=== PATIENT | female | born 1980 | race Hispanic/Latino ===

== ENCOUNTER 2025-06-29 21:01 | Emergency (ER) | payer OTHER, SELFPAY ==
[2025-06-29 21:03] VITALS: BP 130/75
--- NOTE | 2025-06-29 22:32 | ED.MUSCINJ ---
HPI-Injury
<Meg Gerard, SENIOR ACCOUNT DIRECTOR - Last Filed: 06/29/25 22:50>
General
Chief Complaint: Musculo-Skeletal Complaint
Source: patient
Exam Limitations: none
Time Seen by Provider: 06/29/25 22:32
Nursing documentation reviewed up to this point in time: agreed with
History of Present Illness-Injury
Initial Injury comments:
45-year-old female with no significant past medical history presents for right low back pain radiating down her butt and down the back of her thigh for the past 3 weeks, she has taken Ibuprofen with little relief. Denies weakness in her legs,
denies saddle anesthesia, denies loss of bowel or bladder control. She does state that 'it arguello when I pee.'
Denies fever or chills. Denies abdominal pain. Denies vaginal discharge.
She states her last period was 8 months ago. She states her mother went through early menopause
Past History
<Meg Gerard, SENIOR ACCOUNT DIRECTOR - Last Filed: 06/29/25 22:50>
Past History
ED Past Medical History: Other (Migraines)
ED Past Surgical History: Gynecological (Ovarian cyst, tubal)
Social History
Tobacco: Non-smoker
Alcohol: None
Personal:
Living: with family
Employment: Not employed
Review of Systems
<Meg Gerard, SENIOR ACCOUNT DIRECTOR - Last Filed: 06/29/25 22:50>
Review of Systems
Allergies reviewed?: Yes
All Other Systems: ROS reviewed and negative except as documented in HPI and ROS
Phy Exam
<Meg Gerard, SENIOR ACCOUNT DIRECTOR - Last Filed: 06/29/25 22:50>
Physical Exam
Physical Exam:
GENERAL: No acute distress. A&Ox3.
CONSTITUTIONAL: Afebrile.
EYES: clear, conjunctivae normal
ENMT: moist mucus membranes
RESPIRATORY: Regular respirations, nonlabored, lungs clear.
CARDIOVASCULAR: Regular rate and rhythm, no murmurs, no rubs.
GI: Soft, nontender, normal BS
MUSCULOSKELETAL: Positive bilateral straight leg raise. No back tenderness to palpation. Patient sat up on edge of stretcher, got off the stretcher and ambulated to the bathroom albeit slowly. She points to the back of her right thigh to indicate
pain. Calf is nontender. No notable swelling, no redness or warmth. Moves with ease. Well perfused.
SKIN: Warm, dry, normal
PSYCH: Normal mood and affect. Well kept, interactive and appropriate
NEUROLOGIC: Awake, alert and oriented. No focal neurological deficits strength 5/5 bilaterally. Patellar reflexes 2/4 bilaterally. Ambulates well.
Injury Course
<Meg Gerard, SENIOR ACCOUNT DIRECTOR - Last Filed: 06/29/25 22:50>
Orders/Labs/Results
Orders:
Orders
06/29/25 22:30
Dexamethasone [Decadron] 10 mg PO NOW STA
Ketorolac [Toradol] 30 mg IM NOW STA
06/29/25 22:31
Diazepam [Valium] 2 mg PO NOW STA
06/29/25 22:34
Test Result ONCE
06/29/25 22:42
Urinalysis Reflex To Culture Urgent
Date Specimen was Collected: 06/29/25
Time Specimen was Collected: 22:37
Urine Microscopic Reflex Cult Urgent
Urine,Hcg qualitative screen [HCG, Urine Qualitative Screen] Urgent
Date Specimen was Collected: 06/29/25
Time Specimen was Collected: 22:38
Urine Culture Urgent
ISSA Source: U
Specimen Description:
Date Specimen was Collected: 06/29/25
Time Specimen was Collected: 22:37
06/29/25 22:44
US Periph Venous LOWER Ext RT Urgent
Comment:
Reason For Exam: Pain right posterior thigh, popliteal area and sharif
Abnormal Lab Results
06/29/25
22:42
Leukocyte Esterase Rfl 1+ A
(Negative)
Urine Bacteria (Reflex) Few A
(Negative)
<Rosa Walton PA-C - Last Filed: 06/30/25 01:25>
Orders/Labs/Results
Orders:
Orders
06/29/25 22:30
Dexamethasone [Decadron] 10 mg PO NOW STA
Ketorolac [Toradol] 30 mg IM NOW STA
06/29/25 22:31
Diazepam [Valium] 2 mg PO NOW STA
06/29/25 22:34
Test Result ONCE
06/29/25 22:42
Urinalysis Reflex To Culture Urgent
Date Specimen was Collected: 06/29/25
Time Specimen was Collected: 22:37
Urine Microscopic Reflex Cult Urgent
Urine,Hcg qualitative screen [HCG, Urine Qualitative Screen] Urgent
Date Specimen was Collected: 06/29/25
Time Specimen was Collected: 22:38
Urine Culture Urgent
ISSA Source: U
Specimen Description:
Date Specimen was Collected: 06/29/25
Time Specimen was Collected: 22:37
06/29/25 22:44
US Periph Venous LOWER Ext RT Urgent
Comment:
Reason For Exam: Pain right posterior thigh, popliteal area and sharif
Abnormal Lab Results
06/29/25
22:42
Leukocyte Esterase Rfl 1+ A
(Negative)
Urine Bacteria (Reflex) Few A
(Negative)
<Meg Gerard NP - Last Filed: 06/29/25 22:50>
MDM/Problems Addressed
Differential Diagnosis Includes:
Urinary tract infection
Musculoskeletal low back pain, sciatica, DVT
MDM/Problems Addressed:
45-year-old female with no significant past medical history presents for right low back pain radiating down her butt and down the back of her thigh for the past 3 weeks, she has taken Ibuprofen with little relief. Denies weakness in her legs,
denies saddle anesthesia, denies loss of bowel or bladder control. She does state that 'it arguello when I pee.'
Denies fever or chills. Denies abdominal pain. Denies vaginal discharge.
She states her last period was 8 months ago. She states her mother went through early menopause
Explained to patient and about sciatica and informed them of the treatment. All questions answered
is concerned because her pain is mainly in the back of her thigh patient states it goes to the back of her knee and sometimes 'a little bit' down her calf. No risk factors for DVT, low suspicion of DVT but will get ultrasound to rule it out
Afebrile, NAD
Patient called her PCP and could not get an appointment July 29. She did schedule that appointment.
<Meg Gerard NP - Last Filed: 06/29/25 22:50>
*Pulse Oximetry
SaO2: 98
Oxygen Mode of Delivery: Room air
<Rosa Walton PA-C - Last Filed: 06/30/25 01:25>
*Pulse Oximetry
Patient hypoxic: no
*Critical Care Note
Total Time (30-74mins, 75-104mins- exclusive of procedures): Not Applicable
<Rosa Walton PA-C - Last Filed: 06/30/25 01:25>
Update Note
Update Note:
I received patient in signout. On my evaluation, patient is well-appearing in no acute distress. She is feeling well. Urinalysis reviewed, no signs of infection. Will await culture to treat. Patient was given steroid course as well as muscle
relaxant sent to the pharmacy. Patient stable for discharge. Discussed strict return precautions.
ED Attending Note
<Meg Gerard NP - Last Filed: 06/29/25 22:50>
-
Portions of this chart may have been created with voice recognition software.� Occasional wrong word or��sound alike� substitutions may have occurred due to the inherent limitations of voice recognition software.
Discharge Plan
Departure
Patient Disposition: Home (Routine Discharge)
Date of Disposition: 06/29/25
Time of Disposition: 23:55
Patient with high blood pressure during this ER visit?: Yes
Condition: Good
Discharge Problem:
Sciatica
Instructions: Sciatica - ED (DC), BLOOD PRESSURE
Prescriptions:
New
cyclobenzaprine 10 mg tablet
10 mg PO TID PRN (Reason: Pain) Qty: 30 0RF
prednisone 20 mg tablet
40 mg PO DAILY Qty: 8 0RF
Referrals:
[facility] [Other]
Activity Restrictions/Additional Instructions:
Prednisone has been sent to your pharmacy. Cyclobenzaprine is also been sent to your pharmacy.
You will receive a call regarding the results of your urine culture. PLEASE RETURN TO ER SHOULD YOU DEVELOP URINARY OR FECAL INCONTINENCE, INABILITY TO AMBULATE, FEVERS OR CHILLS, INTRACTABLE NAUSEA OR VOMITING, FLANK PAIN, OR ANY OTHER SIGNS OR
SYMPTOMS WORRISOME TO YOU.
Interventions
Interventions:
*Risk Screen - Suicide Last Done: 06/29/25 21:03
*General Assessment Last Done: 06/29/25 21:03
*Neglect/Abuse Screening Last Done: 06/29/25 21:03
*ED- Fall Risk Assessment Last Done: 06/29/25 22:46
*ED COVID-19 Vaccine History Last Done: 06/29/25 21:03
*Nursing Disposition Last Done: 06/30/25 00:31
ED-Musculoskeletal Assessment Last Done: 06/29/25 22:47
Discharge Date and Time
Discharge Date/Time: 06/30/25 00:38
Print Language: BELARUSIAN
[2025-06-29] MEDS: DECADRON 10 MG PO (22:40)
[2025-06-29] MEDS: TORADOL 30 MG IM (22:40)
[2025-06-29] MEDS: VALIUM 2 MG PO (22:40)
[2025-06-29 22:45] VITALS: BMI 42.1
[2025-06-29 22:49] VITALS: BP 120/76
[2025-06-29 22:55] LABS: Urine Character Clear (Clear)
[2025-06-29 22:56] LABS: HCG, Urine Qualitative Screen Negative
[2025-06-29 23:04] LABS: Urine Red Blood Cell 0-2 /HPF (0-2); Urine Squamous Cell >30 /LPF (Few)
[2025-06-30 00:21] VITALS: BP 121/78
== END 2025-06-30 00:38 | disposition home or self-care (01) ==
LOC: EMR 21:01
PROVIDERS: Registered Nurse; EMERGENCY PHYSICIAN Emergency Medicine
DX: M54.41 Lumbago with sciatica, right side (principal); R39.198 Other difficulties with micturition
CPT/HCPCS: 99284; 96372; 81003; 81015; 81025; 87086; 93971

== ENCOUNTER 2025-09-27 18:00 | Emergency (ER) | payer OTHER, SELFPAY ==
[2025-09-27 18:12] VITALS: BP 140/82
[2025-09-27 18:46] LABS: Hematocrit 41.1 % (37.0-47.0); Hemoglobin 13.2 g/dL (12.0-16.0); Mean Corp Hgb Conc. 32.1 g/dL (33.0-37.0); Mean Corpuscular Volume 84.4 fL (81.0-99.0); Nucleated Red Blood Cells % 0 %; Platelet Count 189 10^3/uL (130-400); Red Cell Dist. Width 14.6 % (11.5-14.5)
[2025-09-27 19:09] LABS: HCG, Serum Qualitative Screen Negative
[2025-09-27 19:13] LABS: ALT (SGPT) 32 U/L (0-35); AST (SGOT) 26 U/L (14-36); Albumin 4.4 g/dl (3.5-5.0); Alkaline Phosphatase 111 U/L (38-126); Blood Urea Nitrogen 26 mg/dl (7-17); Calcium 10.0 mg/dl (8.4-10.2); Carbon Dioxide 27 mmol/L (22-30); Chloride 102 mmol/L (98-107); Glucose 90 mg/dl (70-99); Potassium 5.3 mmol/L (3.5-5.1); Sodium 136 mmol/L (135-145); Total Protein 7.5 g/dl (6.3-8.2); eGFR > 60.00
--- NOTE | 2025-09-27 20:16 | ED.GENMED ---
History of Present Illness
General
Chief Complaint: Skin Problem
Source: patient
Time Seen by Provider: 09/27/25 19:47
History of Present Illness
History of Present Illness:
45-year-old female presenting to the emergency department for evaluation of right posterior lateral thigh pain that has been ongoing for about 3 weeks, pain gradually worsening during that time. Denies any trauma to the affected area, no fevers, no
areas of erythema. Has not attempted any medications for relief but does note she went to see orthopedics today at an office in [place] and was recommended to have an ultrasound to further evaluate. Patient states that she was told she might have
sciatica. No fevers or infectious symptoms. No other concerns presently.
Past History
Past History
ED Past Medical History: Other (Migraines)
ED Past Surgical History: Gynecological (Ovarian cyst, tubal)
Social History
Tobacco: Non-smoker
Alcohol: None
Drug: None
Personal:
Living: with family
Employment: Not employed
Review of Systems
Review of Systems
All Other Systems: ROS reviewed and negative except as documented in HPI and ROS
Phy Exam
Physical Exam
Physical Exam:
GENERAL: Alert , in no apparent distress, does ambulate with a noticeable limp on the right, overweight
EYE: conjunctiva clear
Head: Normocephalic atraumatic
NECK: Supple,
ENT: mmm.
LUNGS: no acute respiratory distress
NEUROLOGICAL: Alert and oriented
SKIN: Warm and dry, skin intact.
MUSCULOSKELETAL: Exam chaperoned by ED PARIS Muro: well perfused. Tenderness over the lateral aspect of the hip and towards the lower portion of the buttock, there is no overlying erythema or ecchymosis. Extremity is otherwise warm and
well-perfused
PSYCH: Normal and appropriate interaction.
Scores
Heart Failure Risk
Heart Failure Risk Score: Not Applicable
Heart Score for Chest Pain Patients
STEMI patient?: Not applicable
Withdrawal Assessment of Alcohol
Withdrawal Assessment Completed?: Not applicable
Course
Orders/Labs/Results
Orders:
Orders
09/27/25 18:15
Test Result ONCE
09/27/25 18:31
Complete Blood Count/With Diff Urgent
Comprehensive Metabolic Panel Urgent
HCG, Serum Qualitative Screen Urgent
09/27/25 20:09
US Periph Venous LOWER Ext RT Urgent
Comment:
Reason For Exam: pain posterior right thigh
Abnormal Lab Results
09/27/25
18:31
MCHC 32.1 L g/dL
(33.0-37.0)
RDW 14.6 H %
(11.5-14.5)
MPV 11.2 H fL
(7.4-10.4)
Potassium 5.3 H mmol/L
(3.5-5.1)
BUN 26 H mg/dl
(7-17)
09/27/25 18:31
09/27/25 18:31
Vital Signs
Initial and Last Documented VS:
Initial Vital Signs
Temp Pulse Resp BP Pulse Ox
98.2 F 73 16 140/82 98
09/27/25 18:12 09/27/25 18:12 09/27/25 18:12 09/27/25 18:12 09/27/25 18:12
Last Documented Vital Signs
Temp Pulse Resp BP Pulse Ox
98.2 F 75 16 108/68 98
09/27/25 18:12 09/27/25 21:12 09/27/25 21:12 09/27/25 21:12 09/27/25 21:12
MDM/Problems Addressed
Differential Diagnosis Includes:
Bursitis
Tendonitis
Less concern for fracture
Abscess
Cellulitis
DVT
MDM/Problems Addressed:
45-year-old female presenting to the ER for evaluation of pain to the right upper thigh that has been ongoing for about 3 weeks. Had seen Ortho earlier today, there were concern for possible sciatica but also wanted patient to reportedly obtain an
ultrasound. Unclear as to if they were concern for DVT or other etiology. Based off location of the pain I do think bursitis/tendinitis is a possibility. Less concern for infectious etiology as there is no outward signs of infection. DVT also
considered. Anticipate discharge home with anti-inflammatory regimen and continued outpatient follow-up with orthopedics.
*Radiology
Radiology exam reviewed: radiology read reviewed
*Pulse Oximetry
SaO2: 98
Oxygen Mode of Delivery: Room air
Patient hypoxic: no
*Critical Care Note
Total Time (30-74mins, 75-104mins- exclusive of procedures): Not Applicable
Patient Management
Escalation/DeEscalation of care consider admission/obs:
Ultrasound negative for DVT. Will prescribe the patient a prednisone taper as well as naproxen. Encouraged continued outpatient follow-up if pain persists. Discussed return precautions to the emergency department.
ED Attending Note
-
Portions of this chart may have been created with voice recognition software.� Occasional wrong word or��sound alike� substitutions may have occurred due to the inherent limitations of voice recognition software.
Discharge Plan
Departure
Patient Disposition: Home (Routine Discharge)
Date of Disposition: 09/27/25
Time of Disposition: 21:01
Patient with high blood pressure during this ER visit?: Yes
Discharge Problem:
Hip pain, right
Instructions: Hip pain - ED (DC)
Prescriptions:
New
prednisone 10 mg Tablet
See Rx Instructions .ROUTE .COMPLEX Qty: 30 0RF
Rx Instructions:
Take By Mouth:
40 mg daily x3 days, 30 mg daily x3 days,
20 mg daily x3 days, 10 mg daily x3 days.
naproxen 500 mg tablet
500 mg PO BID PRN (Reason: Pain) Qty: 10 0RF
No Action
cyclobenzaprine 10 mg tablet
10 mg PO TID PRN (Reason: Pain) Qty: 30 0RF
prednisone 20 mg tablet
40 mg PO DAILY Qty: 8 0RF
Referrals:
Ashley Galvan MD [Family Provider, Family Practice]
Interventions
Interventions:
*General Assessment Last Done: 09/27/25 18:12
*Neglect/Abuse Screening Last Done: 09/27/25 18:12
*ED COVID-19 Vaccine History Last Done: 09/27/25 18:12
*ED Influenza Vaccine History Last Done: 09/27/25 18:12
*Risk Screen - Suicide (C-SSRS) Last Done: 09/27/25 18:12
*Nursing Disposition Last Done: 09/27/25 21:13
Discharge Date and Time
Discharge Date/Time: 09/27/25 21:13
Print Language: ESTONIAN
[2025-09-27 21:12] VITALS: BP 108/68
== END 2025-09-27 21:13 | disposition home or self-care (01) ==
LOC: EMR 18:00
PROVIDERS: Emergency Medicine; EMERGENCY PHYSICIAN Student in an Organized Health Care Education/Training Program; FAMILY PHYSICIAN Family Medicine
DX: M25.551 Pain in right hip (principal)
CPT/HCPCS: 99284; 80053; 84703; 85025; 93971